=== PATIENT | female | born 1970 | race Caucasian/White ===

== ENCOUNTER 2018-11-21 07:39 | Day surgery (SDC) | payer OTHER ==
[~2018-11-21] VITALS: Ht 157.5 cm; Wt 82.2 kg
[~2018-11-21 07:39] MED LIST: BIRTH CONTROL; CIPR250 PO; LEVSOD50 PO; VITAMIN D34000 UNIT PO; ZOLP12.5 PO
== END 2018-11-21 09:51 | disposition home or self-care (01) ==
LOC: ORSCSDS 07:39
PROVIDERS: Internal Medicine Gastroenterology
PROC: 0DBK8ZX Excision of Ascending Colon, Via Natural or Artificial Opening Endoscopic, Diagnostic (ICD-10-PCS; principal; 2018-11-21 08:45)
DX: Z12.11 Encounter for screening for malignant neoplasm of colon (principal); D12.2 Benign neoplasm of ascending colon; E03.9 Hypothyroidism, unspecified; Z79.899 Other long term (current) drug therapy
CPT/HCPCS: 88305; J7120